=== PATIENT | female | born 1970 | race African-American/Black ===

== ENCOUNTER 2017-05-28 09:02 | Emergency (ER) | payer OTHER, MEDICAID ==
[~2017-05-28] VITALS: Ht 172.7 cm; Wt 97.1 kg
[~2017-05-28 09:02] MED LIST: CYMBALTA60 MG PO; LIORESAL 10 MG10 MG PO; NAPROSYN500 MG PO; PERCOCET 5-3251 EACH PO; TRAMADOL 50 MG50 MG PO; TRINATE TABLET1 TAB PO
[2017-05-28] MEDS ORDERED: VISTARIL 25 MG25 M1 PO (09:12)
[2017-05-28 09:42] LABS: ABSOLUTE BASOPHILS 0.1 thou/uL (0.0-0.2); ABSOLUTE EOSINOPHILS 0.4 thou/uL (0.0-0.7); ABSOLUTE LYMPHOCYTES 2.9 thou/uL (0.8-5.3); ABSOLUTE MONOCYTES 0.6 thou/uL (0.0-1.2); ABSOLUTE NEUTROPHILS 4.2 thou/uL (1.6-8.1); BASOPHILS 0.6 %; EOSINOPHILS 5.2 %; HEMATOCRIT 33.5 % (37.0-47.0); HEMOGLOBIN 10.8 gm/dL (12.0-15.0); LYMPHOCYTES 35.5 %; MCH 28.3 pg (26.0-34.0); MCHC 32.3 g/dL (28.0-37.0); MCV 87.4 fL (80.0-100.0); MONOCYTES 7.7 %; NUCLEATED RBCS 0 /100WBC; PLATELET COUNT* 335 thou/uL (150-400); RBC 3.83 mil/uL (4.20-5.00); RDW-CV 14.5 % (10.5-14.5); WBC 8.1 thou/uL (4.0-11.0)
[2017-05-28 09:52] LABS: ANION GAP 10 mmol/L (7-16); BUN 10 mg/dL (7-18); CALCIUM 8.5 mg/dL (8.5-10.1); CHLORIDE 102 mmol/L (98-107); CO2 25 mmol/L (21-32); CREATININE 0.8 mg/dL (0.6-1.3); GLUCOSE 95 mg/dL (70-99); POTASSIUM 3.4 mmol/L (3.5-5.1); SODIUM 137 mmol/L (136-145)
[2017-05-28 09:55] LABS: URINE BILIRUBIN NEGATIVE (Negative); URINE BLOOD NEGATIVE (Negative); URINE CLARITY CLEAR; URINE COLOR YELLOW; URINE GLUCOSE-RANDOM NEGATIVE (Negative); URINE KETONES NEGATIVE (Negative); URINE LEUKOCYTES-REFLEX NEGATIVE (Negative); URINE NITRITE-REFLEX NEGATIVE (Negative); URINE PROTEIN NEGATIVE (Negative); URINE SPECIFIC GRAVITY <= 1.005 (1.005-1.030); URINE UROBILINOGEN 0.2 E.U./dl (0.2-1.0)
[2017-05-28 09:59] LABS: ALBUMIN 3.3 g/dL (3.4-5.0); ALKALINE PHOSPHATASE 105 U/L (46-116); LIPASE 200 U/L (73-393); SGOT 32 U/L (15-37); SGPT 26 U/L (30-65); TOTAL BILIRUBIN 0.2 mg/dL (<0.1-1.0); TOTAL PROTEIN 7.3 g/dL (6.4-8.2); TROPONIN-I LEVEL <0.06 ng/mL (<0.06)
[2017-05-28] MEDS ORDERED: CARAFATE1 GM PO (12:26)
[2017-05-28] MEDS ORDERED: ZOFRAN ODT4 M1 PO (12:26)
[2017-05-28 12:28] VITALS: BP 171/108
--- NOTE | 2017-05-29 12:40 | EKG ---
[place] [address] ELECTROCARDIOGRAM REPORT Name: SHONDA LAM Room: [facility]#: [id number] Admission: 05/28/17 Attend Phys: Discharge: 05/28/17 Date of : 70 Report #: [id number] THIS REPORT FOR: //name// [facility] ED Test Date: 2017-05-28 Test Time: 09:09:30 Pat Name: SHONDA LAM Department: Room: Gender: F Photo Technician: : 1970 Requested By: Nicanor Ibarra Order Number: [id number] MD: Leo Mclaughlin Measurements Intervals [place] Rate: 91 P: 51 NM: 154 QRS: 48 QRSD: 83 T: 15 QT: 347 QTc: 427 Interpretive Statements Sinus rhythm Compared to ECG 10/04/2015 09:35:18 No significant changes Electronically Signed On 05-29-2017 12:40:27 COMMUNICATIONS DIRECTOR by Leo Mclaughlin [email or web address] <ELECTRONICALLY SIGNED> By: Leo Mclaughlin MD, [facility] 05/29/17 [id number] [id number] 8 Leo [email or web address] MD, [facility] /EPI
== END 2017-05-28 12:33 | disposition home or self-care (01) ==
LOC: M.ERS 09:02
PROVIDERS: Emergency Medicine Emergency Medical Services
DX: K27.9 Peptic ulcer, site unspecified, unspecified as acute or chronic, without hemorrhage or perforation (principal); I10 Essential (primary) hypertension; E78.00 Pure hypercholesterolemia, unspecified